=== PATIENT | female | born 1975 | race Caucasian/White ===

== ENCOUNTER 2023-06-21 14:05 | Emergency (ER) | payer OTHER, SELFPAY ==
[2023-06-21 14:13] VITALS: BP 151/99; PULSE 101; RESP 16; TEMP 36.6; O2SAT 99
--- NOTE | 2023-06-21 14:20 | ED.EYEPROB ---
HPI - Eye Problem General Chief complaint: Eye Problems Stated complaint: Left Eye Problem Time Seen by Provider: 06/21/23 14:20 Source: patient Mode of arrival: ambulatory Limitations: no limitations History of Present Illness HPI Narrative: 48-year-old female presented for complaint of left eye swelling. She states this morning she felt like she had eyelash in her eye so she rubbed the eye. Then developed swelling and redness. She feels the FB is no longer in the eye. Denies pus/discharge, vision changes, photophobia, headache or dizziness. MD chief complaint: eye pain Related Data Home Medications Medication Instructions Recorded Confirmed carvedilol 12.5 mg tablet mg 06/21/23 empagliflozin 10 mg tablet mg 06/21/23 (Jardiance) furosemide 20 mg tablet mg 06/21/23 sacubitril 24 mg-valsartan 26 mg tablet 06/21/23 tablet (Entresto) spironolactone 25 mg tablet mg 06/21/23 Allergies Allergy/AdvReac Type Severity Reaction Status Date / Time sulfamethoxazole Allergy Unknown Verified 06/21/23 14:19 [From Bactrim] trimethoprim [From Bactrim] Allergy Unknown Verified 06/21/23 14:19 Review of Systems Review of Systems: CONSTITUTIONAL: Denies body aches, fever, chills EYES:Endorses swelling, redness and mild pain to left eye; endorses FB sensation, denies photophobia or visual changes ENT: Denies rhinorrhea, congestion, sore throat, or otalgia. CARDIOVASCULAR: Denies chest pain, palpitations RESPIRATORY: Denies cough or dyspnea. GASTROINTESTINAL: Denies abdominal pain, nausea, vomiting, or diarrhea. SKIN: Denies rash, itching, or wounds. MUSCULOSKELETAL: Denies back pain, joint pain, or myalgia. NEUROLOGIC: Denies headache, numbness, tingling, or weakness. All systems reviewed & are unremarkable except as noted in HPI and below PMFSH Past Medical History Medical History (Updated 06/21/23 @ 14:39 by Sonia Kang APRN) CHF (congestive heart failure) Surgical History Surgical History (Updated 06/21/23 @ 14:39 by Sonia Kang APRN) AICD (automatic cardioverter/defibrillator) present Social History Social History (Updated 06/21/23 @ 14:40 by DIANA Portillo Smoking status: Current every day smoker Comments At time of signature, I have reviewed and agree with nursing past medical, surgical, social and family history unless otherwise noted. Please see nursing chart for further information. There is no relevant family history pertinent to the presenting complaint Exam Narrative: GENERAL: Well-appearing HEAD: Normocephalic, atraumatic. EYES: Left conjunctival injection, periorbital eye lid swelling and mild erythema. No stye formation. No purulent drainage. PERRLA, EOMI. Lid eversion shows no FB. ENT: Mucous membranes pink and moist. No rhinorrhea. TMs normal bilaterally. Throat normal. Uvula midline. CHEST: Clear to auscultation. HEART: Regular rate and rhythm. ABDOMEN: Soft, nontender, nondistended SKIN: Warm, dry, no rash. Normal skin turgor. NEURO: No focal deficits. Alert and oriented x3 PSYCH: Normal affect. Course Course Emergency Course: Patient is aware of diagnosis, understands and agrees to treatment plan. Anticipatory guidance given. Patient agrees to follow-up as directed and is aware of reasons to seek care at the emergency department. Portions of this record may have been created with voice recognition software Level of Care: Express Care Visit Vital Signs Vital signs: Vital Signs Temperature 97.9 F 06/21/23 14:13 Pulse Rate 101 H 06/21/23 14:13 Respiratory Rate 16 06/21/23 14:13 Blood Pressure 151/99 H 06/21/23 14:13 Pulse Oximetry 99 06/21/23 14:13 Oxygen Delivery Room Air 06/21/23 14:13 Temperature 97.9 F 06/21/23 14:13 Pulse Rate 101 H 06/21/23 14:13 Respiratory Rate 16 06/21/23 14:13 Blood Pressure 151/99 H 06/21/23 14:13 Pulse Oximetry 99 06/21/23 14:13 Oxygen Delivery Room Air
== END 2023-06-21 14:47 | disposition home or self-care (01) ==
PROVIDERS: Emergency Provider Nurse Practitioner Family
DX: S05.02XA Injury of conjunctiva and corneal abrasion without foreign body, left eye, initial encounter (principal); I50.9 Heart failure, unspecified; F17.200 Nicotine dependence, unspecified, uncomplicated; X58.XXXA Exposure to other specified factors, initial encounter
CPT/HCPCS: 99213; A9270; G0463